=== PATIENT | female | born 1950 | race African-American/Black ===

== ENCOUNTER 2016-11-25 07:53 | Day surgery (SDC) | payer MEDICARE, OTHER ==
--- NOTE | ~2016-11-25 | EGD ---
EGD REPORT [facility] [address] [place]. [address] NAME: MIREILLE MCALLISTER : [birth year] STATUS : REG [facility]#: [id number] AGE: 65 ADM/REG DATE : 11/25/16 MR#: [id number] REPORT SERV DATE: 11/25/16 DICTATED BY: JJ BORREGO DATE: 11/25/16 REPORT STATUS : Draft TRANSCRIBED BY: [facility] DATE: 11/25/16 [facility] Patient Name: Mireille Mcallister Date of : 1950 Attending MD: JJ BORREGO MD Procedure Date No Time: 11/25/2016 Procedure: Colonoscopy Indications: Follow-up of diverticulitis Referring MD: VIPUL FLORES Medicines: Propofol per Anesthesia Complications: No immediate complications. Procedure: Pre-Anesthesia Assessment: - ASA Grade Assessment: III - A patient with severe systemic disease. After I obtained informed consent, the scope was passed under direct vision. Throughout the procedure, the patient's blood pressure, pulse, and oxygen saturations were monitored continuously. The PCF [id number] was introduced through the anus and advanced to the ascending colon. The GIF H190 [id number] was introduced through the and advanced to. The colonoscopy was performed without difficulty. The patient tolerated the procedure well. The quality of the bowel preparation was poor. Findings: Multiple large-mouthed diverticula were found in the sigmoid colon. The retroflexed view of the distal rectum and anal verge was normal and showed no anal or rectal abnormalities. Impression: - Preparation of the colon was poor. - Severe diverticulosis in the sigmoid colon. Recommendation: - The patient will be observed post-procedure, until all discharge criteria are met. - Return to previous diet today. - Continue present medications. - Repeat colonoscopy in 10 years for screening purposes. - The findings and recommendations were discussed with the patient and their family. - After the procedure, if you experience any pain in abdomen or chest,shortness of breath,fever,chills,blood in stool,rectal bleeding,vomiting of any material,nausea,black stools or weakness or dizziness, GO TO THE EMERGENCY IMMEDIATELY!!!!!!!!! EGD REPORT [address] [address] NAME: MIREILLE MCALLISTER : [birth year] STATUS : REG [facility]#: [id number] AGE: 65 ADM/REG DATE : 11/25/16 MR#: [id number] REPORT SERV DATE: 11/25/16 DICTATED BY: JJ BORREGO DATE: 11/25/16 REPORT STATUS : Draft TRANSCRIBED BY: [email or web address] DATE: 11/25/16 - [facility] colonoscope would not pass through sigmoid. used gastroscope to advance to proximal ascending Procedure Code(s): --- Professional --- 38339, Colonoscopy, flexible, proximal to splenic flexure; diagnostic, with or without collection of specimen(s) by brushing or washing, with or without colon decompression (separate procedure) Diagnosis Code(s): --- Professional --- K57.30, Diverticulosis of large intestine without perforation or abscess without bleeding K57.32, Diverticulitis of large intestine without perforation or abscess without bleeding CPT copyright 2013 [employer]. All rights reserved. The codes documented in this report are preliminary and upon community dietitian review may be revised to meet current compliance requirements. Jj Borrego MD JJ BORREGO MD 11/25/2016 10:32 AM This report has been signed electronically. Number of Addenda: 0 Note Initiated On: 11/25/2016 9:47 AM Scope Withdrawal Time 0 hours 0 minutes 0 seconds [address] [place] [id number]
[~2016-11-25 07:53] MED LIST: CARTIA XT120 MG/24 PO; LEVOTHYROXIN100 MCG PO; LOTE5 PO; NORCO1 TAB PO; XARELTO20 MG PO; Z300 PO
== END 2016-11-25 23:59 | disposition home or self-care (01) ==
LOC: DMU 07:53
PROVIDERS: Internal Medicine Gastroenterology
PROC: 0DJD8ZZ Inspection of Lower Intestinal Tract, Via Natural or Artificial Opening Endoscopic (ICD-10-PCS; principal; 2016-11-25 10:00)
DX: K57.32 Diverticulitis of large intestine without perforation or abscess without bleeding (principal); K57.30 Diverticulosis of large intestine without perforation or abscess without bleeding; I48.91 Unspecified atrial fibrillation; I10 Essential (primary) hypertension; E66.9 Obesity, unspecified; G47.33 Obstructive sleep apnea (adult) (pediatric); Z99.81 Dependence on supplemental oxygen; F41.9 Anxiety disorder, unspecified; E89.0 Postprocedural hypothyroidism; Z90.710 Acquired absence of both cervix and uterus; Z90.49 Acquired absence of other specified parts of digestive tract; Z98.890 Other specified postprocedural states